=== PATIENT | male | born 1960 | race Caucasian/White ===

== ENCOUNTER 2021-11-27 12:45 | Emergency (ER) | payer BC ==
[~2021-11-27] VITALS: Ht 170.2 cm; Wt 72.7 kg
[2021-11-27 12:54] VITALS: BP 184/118
[2021-11-27] MEDS ORDERED: diazepam 5mg tablet PO ONE (15:50)
[2021-11-27] MEDS ORDERED: ibuprofen 200mg tablet PO ONE (15:50)
== END 2021-11-27 17:56 | disposition home or self-care (01) ==
LOC: ER 12:47
DX: M54.50 Low back pain, unspecified (principal); M25.78 Osteophyte, vertebrae; G89.29 Other chronic pain
CPT/HCPCS: 72100; 99283